=== PATIENT | female | born 1995 | race Caucasian/White ===

== ENCOUNTER 2016-10-02 12:41 | Emergency (ER) | payer OTHER ==
[2016-10-02 13:17] LABS: Hematocrit 41.7 % (37.0-47.0); Hemoglobin 13.9 gm/dL (12.5-16.0); Mean Cell Volume 90.3 fl (78-100); Mean Corpuscular Hemoglobin 30.1 pg (27-31); Mean Corpuscular Hgb Conc 33.3 g/dl (32-36); Mean Platelet Volume 10.7 fl (6.0-9.5); Neutrophil # 9.6 K/mm3 (1.3-6.0); Neutrophil % 75.9 % (42-75.0); Platelet Count 274 K/mm3 (150-450); Red Blood Count 4.62 M/mm3 (4.2-5.4); Red Cell Distribution Width 12.4 % (11.5-14.0); White Blood Count 12.6 K/mm3 (4.0-10.5)
[2016-10-02 13:23] LABS: Urine Bilirubin Negative (NEGATIVE); Urine Blood Negative /ul (NEGATIVE); Urine Ketone Negative (NEGATIVE); Urine Nitrite Negative (NEGATIVE); Urine Protein 15 mg/dL (NEGATIVE); Urine Specific Gravity 1.015 SP.GR. (1.005-1.010); Urine Urobilinogen Normal (NORMAL)
--- NOTE | 2016-10-02 13:25 | ERNOTE ---
Abdominal HPI - Narrative Date of Service: 10/02/16 - General Chief Complaint: Abdominal Pain Time Seen by Provider: 10/02/16 13:04 Source: patient Exam Limitations: no limitations - Immun/Allergies/Home Medications Immunizatons: IMMUNIZATION HX History of Influenza Vaccine No Hx Pneumococcal Vaccination No Allergies/Adverse Reactions: Allergies No Known Allergies Allergy (Verified 10/02/16 13:01) Home Medications: HOME MEDICATIONS Ibuprofen [Motrin] 800 mg PO Q6H PRN #0 tablet 06/21/16 [Last Taken Unknown] Pantoprazole Sodium 40 mg PO DAILY #30 tablet.dr 08/29/16 [Last Taken Unknown] Albuterol Sulfate [Ventolin Hfa] 2 puff IH Q4H PRN #1 inhaler 10/02/16 [Last Taken Unknown] Albuterol Sulfate [Ventolin Hfa] 2 puff IH Q4H PRN #1 inhaler 10/02/16 [Last Taken Unknown] Lansoprazole/Amoxiciln/Clarith [Prevpac Patient Pack] 1 pkt PO BID #1 pkg [Last Taken Unknown] Ondansetron [Zofran Odt] 4 mg PO Q6H PRN #20 tab 10/02/16 [Last Taken Unknown] - History of Present Illness Narrative: Pt. comes in with c/o upper mid epigastric pain for over a month and sore throat , rhinorrhea, fever, NVD, cough and chest congestion. Pt. states that she is under treatment for gastritis since the onset of her illness and denies relief. Pt. denies any alleviating or aggravating factors. Review of Systems - Review of Systems Constitutional: Present: fever, fatigue, malaise. Absent: recent illness, chills EYE: Present: no symptoms reported ENT: Present: nose congestion, nasal drainage, sore throat. Absent: ear pain Respiratory: Present: cough, wheezing. Absent: shortness of breath Cardiology: Present: no symptoms reported. Absent: chest pain, palpitations, edema Gastrointestinal/Abdominal: Present: nausea, constipation, abdominal pain. Absent: vomiting, diarrhea Genitourinary: Present: no symptoms reported Musculoskeletal: Present: no symptoms reported. Absent: back pain, joint pain Skin: Present: no symptoms reported Neurological: Present: no symptoms reported Endocrine: Present: no symptoms reported All Other Systems: All systems neg except as marked - Patient's Past Medical History Patient History - Medical: GERD Patient History - Cardiac/Respiratory: No pertinent hx Patient History - Cancer: No Hx of Cancer Patient History - Surgical Procedures: No surgical history LMP (females 10-50): 2 weeks - Family History Mother Family History - Medical: No pertinent hx Father Family History - Medical: No pertinent hx - Social History Living Situations: home Smoking Status: Current every day smoker Alcohol Use: none Drug Use: marijuana Physical Exam - Physical Exam General Appearance: Present: wd/wn, alert, no apparent distress Eye Exam: Normal inspection: bilateral, PERRL: bilateral, EOMI: bilateral Ears, Nose, Throat: Present: normal ENT inspection, hearing grossly normal, normal pharynx Neck: Present: normal inspection, nontender. Absent: lymphadenopathy (R), lymphadenopathy (L) Respiratory: Present: no respiratory distress, no accessory muscle use, decreased breath sounds Cardiovascular/Chest: Present: regular rate, rhythm, no murmur, normal peripheral pulses Gastrointestinal/Abdominal: Present: normal bowel sounds, nondistended, soft, no organomegaly, tenderness - mid upper epigastric. Absent: McBurney sign, Obturator sign, Cornell sign, Psoas sign Back Exam: Present: normal inspection, normal range of motion, no CVA tenderness , no vertebral tenderness Extremity Exam: Present: normal inspection, non-tender, no edema, normal range of motion Neurological Exam: Present: alert, oriented, normal mood/affect, no motor/ sensory deficits, manager quality improvement II-XII nml as tested, normal cerebellar test Skin Exam: Present: normal color, warm/dry. Absent: pallor, skin rash ED Progress - Date and Time Seen: Date and Time: 10/02/16 14:30 Feel that pt. has continues gastritis and bronchitis: Will emperically treat for H. Pylori, educate on diet changes and prescribe albuterol inhaler for SOB. - Results and Orders Patient's Lab Results:: I have reviewed the patient's lab results. - Vital Signs Patient's Vital Signs:: I have reviewed the patient's vital signs. Vital Signs: Vital Signs 10/02/16 12:55 Temperature 36.0 C L Pulse Rate 86 Respiratory 16 Rate Blood Pressure 126/78 O2 Sat by Pulse 99 Oximetry - X-Ray X-Ray #1 X-Ray: chest Interpretation: Interp. by me X-ray Comments: bronchial cuffing. - Progress/Reassessment Chief Complaint: Abdominal Pain Departure - Departure Clinical Impression: Gastritis Qualifiers: Gastritis type: other gastritis Chronicity: chronic Gastritis bleeding: without bleeding Qualified Code(s): K29.50 - Unspecified chronic gastritis without bleeding Acute bronchitis Qualifiers: Bronchitis organism: unspecified organism Qualified Code(s): J20.9 - Acute bronchitis, unspecified Disposition: Home self-care Condition: Good Instructions: Acute Bronchitis, [id number], Gastritis, Adult, [id number] Additional Instructions: Please change diet to bland until feeling better. Take zofran as directed and eat six small meals a day until feeling better. Take inhaler when you feel Short of breath. Please follow up with your primary provider in 2-3 days and discuss need for endoscopy. Prescriptions: Albuterol Sulfate [Ventolin Hfa] 2 puff IH Q4H PRN #1 inhaler PRN Reason: Shortness Of Breath Albuterol Sulfate [Ventolin Hfa] 2 puff IH Q4H PRN #1 inhaler PRN Reason: Shortness Of Breath Lansoprazole/Amoxiciln/Clarith [Prevpac Patient Pack] 1 pkt PO BID #1 pkg Ondansetron [Zofran Odt] 4 mg PO Q6H PRN #20 tab PRN Reason: Nausea
[2016-10-02 13:31] LABS: Albumin * 4.1 gm/dl (3.4-5.0); Anion Gap 14.3 mmol/L (6.8-13.8); BUN/Creatinine Ratio 6.5 (9.0-21.6); Bilirubin, Total 0.4 mg/dL (0.0-1.1); Ca. Corrected For Albumin 8.5 mg/dL (8.4-10.2); Calcium * 8.9 mg/dL (7.9-10.9); Carbon Dioxide 28.3 mmol/L (24-32.6); Potassium 3.6 mmol/L (3.4-4.6); Total Protein 7.6 gm/dL (6.2-8.2)
[2016-10-02 13:32] LABS: Urine Appearance Clear; Urine Bacteria TRACE; Urine Color Yellow; Urine RBC None Seen /hpf (0-5); Urine WBC None Seen /hpf (0-5)
[2016-10-02 14:43] VITALS: BP 119/84
== END 2016-10-02 14:42 | disposition home or self-care (01) ==
LOC: ER 12:41
DX: K29.50 Unspecified chronic gastritis without bleeding (principal); J20.9 Acute bronchitis, unspecified; F17.210 Nicotine dependence, cigarettes, uncomplicated; K21.9 Gastro-esophageal reflux disease without esophagitis

== ENCOUNTER 2016-10-23 16:56 | Emergency (ER) | payer OTHER ==
[2016-10-23] MEDS ORDERED: ONDANSETRON HCL/PF 2 MG/ML VIAL IV ONE ×2 (18:25→20:18)
[2016-10-23] MEDS ORDERED: PANTOPRAZOLE SODIUM 40 MG in NORMAL SALINE 100 ML IV ONE (18:26)
[2016-10-23] MEDS ORDERED: ONDANSETRON HCL/PF 2 MG/ML VIAL ONE ×2 (18:29→20:14)
[2016-10-23] MEDS ORDERED: PANTOPRAZOLE SODIUM 40 MG/100 ML PIGGYBACK IV ONE (18:30)
--- NOTE | 2016-10-23 18:36 | ERNOTE ---
Abdominal HPI - General Chief Complaint: Abdominal Pain Time Seen by Provider: 10/23/16 18:13 - Immun/Allergies/Home Medications Immunizatons: IMMUNIZATION HX Immunizations Up to Date Yes History of Influenza Vaccine No Hx Pneumococcal Vaccination No Allergies/Adverse Reactions: Allergies No Known Allergies Allergy (Verified 10/23/16 17:31) Home Medications: HOME MEDICATIONS NK [No Home Medication] 10/23/16 [Last Taken Unknown] - Pain Score Pain Score #1 Pain Score: 7 Abdominal Pain Onset Location: RUQ, epigastric - History of Present Illness Narrative: Patient has had problems with abdominal pain for about ten weeks. She was seen in the ER the end of August, diagnosed with gastritis, and the prescribed medication helped.When she ran out the pain returned and she was seen in the ER again on 10/02, treated again and her symptoms resolved. now she started with pain again yesterday epigastric, vomited yesterday, today just nausea Date (Duration): 10/22/16 Time (Timing): 10:00 Timing: constant Modifying Factors - (Worsens): Present: breathing, eating Associated Symptoms: Present: nausea, vomiting. Absent: diarrhea-gross blood, fever/chills, heartburn Prior Abdominal Problems: Present: similar symptoms Review of Systems - Review of Systems Constitutional: Absent: recent illness, fever ENT: Absent: sore throat Respiratory: Absent: shortness of breath, cough Cardiology: Absent: chest pain Gastrointestinal/Abdominal: Present: See HPI Genitourinary: Present: no symptoms reported, other - started period yesterday Skin: Absent: rash Neurological: Absent: headache - Patient's Past Medical History Patient History - Medical: GERD Patient History - Cardiac/Respiratory: No pertinent hx Patient History - Cancer: No Hx of Cancer Patient History - Surgical Procedures: No surgical history LMP (females 10-50): now - Family History Mother Family History - Medical: No pertinent hx Father Family History - Medical: No pertinent hx - Social History Living Situations: home Smoking Status: Current every day smoker Have you smoked in the past 12 months: Yes Alcohol Use: none Drug Use: marijuana Physical Exam - Physical Exam General Appearance: Present: wd/wn, alert, no apparent distress Ears, Nose, Throat: Present: normal pharynx Respiratory: Present: no respiratory distress, normal breath sounds, no accessory muscle use, chest nontender, lungs clear Cardiovascular/Chest: Present: regular rate, rhythm, no murmur Gastrointestinal/Abdominal: Present: normal bowel sounds, nondistended, soft, tenderness - max RUQ, mild epigastric Extremity Exam: Present: no edema Neurological Exam: Present: alert, oriented, normal mood/affect Skin Exam: Present: normal color, warm/dry ED Progress - Results and Orders Patient's Lab Results:: I have reviewed the patient's lab results. - Vital Signs Patient's Vital Signs:: I have reviewed the patient's vital signs. Vital Signs: Vital Signs 10/23/16 17:25 Temperature 35.2 C L Pulse Rate 79 Respiratory 16 Rate Blood Pressure 114/77 O2 Sat by Pulse 100 Oximetry - CT/Ultrasound CT/Ultrasound Narrative: U/S: acute cholecystitis with common bile duct dilatation - Progress/Reassessment Chief Complaint: Abdominal Pain Progress Note-Subjective: 10/23/16 19:[address] Martinez, as dilated hepatobiliary duct dilatation should be transferred as she might need an ERCP 10/23/16 19:15 discussed results and diagnosis with patient and her sister, recommended transfer to [facility], patient agreed pain better after zofran and protonix, denies need for further pain meds at this time 10/23/16 19:22 call to [facility] 10/23/16 19:[address] Krueger ([facility]) accepted patient for transfer Departure - Departure Clinical Impression: Acute calculous cholecystitis Disposition: [facility] Condition: Good
[2016-10-23 18:41] LABS: Hematocrit 38.3 % (37.0-47.0); Hemoglobin 12.7 gm/dL (12.5-16.0); Mean Cell Volume 89.1 fl (78-100); Mean Corpuscular Hemoglobin 29.5 pg (27-31); Mean Corpuscular Hgb Conc 33.2 g/dl (32-36); Mean Platelet Volume 10.9 fl (6.0-9.5); Neutrophil # 5.8 K/mm3 (1.3-6.0); Neutrophil % 67.9 % (42-75.0); Platelet Count 315 K/mm3 (150-450); Red Cell Distribution Width 13.4 % (11.5-14.0); White Blood Count 8.5 K/mm3 (4.0-10.5)
[2016-10-23 18:54] LABS: Albumin * 3.5 gm/dl (3.4-5.0); Anion Gap 15.4 mmol/L (6.8-13.8); BUN/Creatinine Ratio 6.5 (9.0-21.6); Bilirubin, Total 5.5 mg/dL (0.0-1.1); Ca. Corrected For Albumin 9.1 mg/dL (8.4-10.2); Carbon Dioxide 26.9 mmol/L (24-32.6); Potassium 3.3 mmol/L (3.4-4.6); Total Protein 7.1 gm/dL (6.2-8.2)
[2016-10-23 19:19] VITALS: BP 114/59
[2016-10-23] MEDS ORDERED: HYDROmorphone HCL 1 MG/ML DISP.SYRIN IV ONE (20:10)
[2016-10-23] MEDS ORDERED: HYDROmorphone HCL 1 MG/ML DISP.SYRIN ONE (20:11)
== END 2016-10-23 20:21 | disposition short-term general hospital (02) ==
LOC: ER 16:56
DX: K80.00 Calculus of gallbladder with acute cholecystitis without obstruction (principal); F17.210 Nicotine dependence, cigarettes, uncomplicated